=== PATIENT | male | born 2005 | race African-American/Black ===

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

== ENCOUNTER 2024-03-09 14:32 | Emergency (ER) | payer OTHER, SELFPAY ==
--- NOTE | ~2024-03-09 | XR_ITS ---
EXAMINATION: XR WRIST, LEFT CLINICAL INFORMATION: Wrist pain COMPARISON: None available. TECHNIQUE: PA, lateral, navicular and oblique views of the left wrist. FINDINGS: The bones and soft tissues are normal. No fracture. Alignment is anatomic with normal joint spaces. No erosions or abnormal soft tissue calcifications. XR/XR wrist LT min 3V IMPRESSION: Unremarkable plain radiographs of the left wrist.
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
[2024-03-09 14:41] VITALS: BP 106/43; BP 140/84; PULSE 118; PULSE 137; RESP 20; TEMP 36.8; O2SAT 100; O2SAT 99; BMI 19.5
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
[2024-03-09] MEDS: oxyCODONE HCl Immed Release 5 MG TABLET PO (17:18)
[2024-03-09 17:19] VITALS: BP 117/59; PULSE 89; RESP 16; O2SAT 99
[2024-03-09] MEDS: Diphth,Pertus(ACell),Tet Adult 0.5 ML SYRINGE IM (17:36)
[2024-03-09] MEDS: Lidocaine HCl 1 % MPF 5 ML VIAL INFILTRATI (18:16)
[2024-03-09] MEDS: Bacitracin Oint 0.9 GM PACKET 1 APPL TOPICAL (18:16)
[2024-03-09 18:17] VITALS: BP 114/63; PULSE 83; RESP 18; TEMP 37.1; O2SAT 99
[2024-03-09 18:30] VITALS: RESP 18
[2024-03-09] MEDS: Ibuprofen 600 MG TABLET PO (19:47)
[2024-03-09 19:52] VITALS: BP 114/63; PULSE 83; RESP 18; TEMP 37.1; O2SAT 99
== END 2024-03-09 19:54 | disposition home or self-care (01) ==
PROVIDERS: Emergency Provider Student in an Organized Health Care Education/Training Program
DX: S01.81XA Laceration without foreign body of other part of head, initial encounter (principal); V47.5XXA Car driver injured in collision with fixed or stationary object in traffic accident, initial encounter; M25.532 Pain in left wrist; Y93.89 Activity, other specified; Y92.410 Unspecified street and highway as the place of occurrence of the external cause; Y99.9 Unspecified external cause status; Z23 Encounter for immunization
CPT/HCPCS: 12011; 70450; 70486; 71250; 72125; 73110; 90471; 90715; 99284